=== PATIENT | male | born 1960 | race Caucasian/White ===

== ENCOUNTER 2019-08-17 13:33 | Emergency (ER) | payer OTHER ==
[~2019-08-17] VITALS: Ht 182.9 cm; Wt 108.6 kg
[2019-08-17] MEDS ORDERED: UNKNOWN HTN MED PO (13:39)
[2019-08-17] MEDS ORDERED: METF-960 PO (13:39)
[2019-08-17 13:51] LABS: GLUCOSE,POINT OF CARE 295 MG/DL (70-110)
[2019-08-17] MEDS ORDERED: PERTUSS(ACELL),DIPH,TET VAC/PF 0.5 ML VIAL IM ONE (14:45)
[2019-08-17] MEDS ORDERED: BACITRACIN 0.9 GM PACKET OINTMENT TP ONE (14:45)
[2019-08-17] MEDS ORDERED: LIDOCAINE 1% 10 ML VIAL INJ ONE ×2 (14:45→15:00)
[2019-08-17] MEDS ORDERED: POVIDONE-IODINE 10% 15 ML SOLUTION UD TP ONE (14:45)
[2019-08-17 17:22] VITALS: BP 136/86
== END 2019-08-17 17:25 | disposition home or self-care (01) ==
LOC: EMS 13:35
DX: S61.012A Laceration without foreign body of left thumb without damage to nail, initial encounter (principal); S61.211A Laceration without foreign body of left index finger without damage to nail, initial encounter; E11.9 Type 2 diabetes mellitus without complications; I10 Essential (primary) hypertension; Z79.84 Long term (current) use of oral hypoglycemic drugs; W31.2XXA Contact with powered woodworking and forming machines, initial encounter; Y93.89 Activity, other specified; Y92.89 Other specified places as the place of occurrence of the external cause; Y99.8 Other external cause status
CPT/HCPCS: 12002; 73130; 82962; 90471; 90715; 99283; J3490

== ENCOUNTER 2019-08-19 16:45 | Emergency (ER) | payer OTHER ==
[~2019-08-19] VITALS: Ht 182.9 cm; Wt 108.6 kg
[~2019-08-19 16:45] MED LIST: METF-960 PO; UNKNOWN HTN MED PO
[2019-08-19 17:16] LABS: GLUCOSE,POINT OF CARE 315 MG/DL (70-110)
[2019-08-19] MEDS ORDERED: BACITRACIN 0.9 GM PACKET OINTMENT TP ONE (20:15)
[2019-08-19 20:40] VITALS: BP 134/72
== END 2019-08-19 21:00 | disposition home or self-care (01) ==
LOC: EMS 16:46
DX: S61.211D Laceration without foreign body of left index finger without damage to nail, subsequent encounter (principal); S61.012D Laceration without foreign body of left thumb without damage to nail, subsequent encounter; E11.65 Type 2 diabetes mellitus with hyperglycemia; I10 Essential (primary) hypertension; Z79.84 Long term (current) use of oral hypoglycemic drugs; W45.8XXD Other foreign body or object entering through skin, subsequent encounter